=== PATIENT | male | born 1950 | race Caucasian/White ===

== ENCOUNTER 2021-08-28 08:15 | Observation (INO) ==
[2021-08-28] MEDS ORDERED: ANCEF VIAL 1 GRAM ONE (09:46)
[2021-08-28] MEDS ORDERED: NS 100 ML IV 100 ML ONE (09:46)
[2021-08-28] MEDS ORDERED: NS 1,000 ML IV 1,000 ML ONE (09:46)
[2021-08-28] MEDS ORDERED: FENTANYL VIAL INJ 100 mcg ONE ×2 (10:09→10:16)
[2021-08-28] MEDS ORDERED: NAROPIN 0.75% EPI ONE (10:10)
[2021-08-28] MEDS ORDERED: VERSED ONE (10:10)
[2021-08-28] MEDS ORDERED: DIPRIVAN VIAL 0 ML ONE (10:15)
[2021-08-28 10:33] VITALS: BP 118/71
[2021-08-28 10:48] VITALS: BMI 38.9
[2021-08-28] MEDS ORDERED: DILAUDID INJ ONE (11:35)
--- NOTE | 2021-08-28 11:35 | RAD ---
CHEST, 1 VIEWHISTORY:COVID POS. NO CHEST COMPLAINTSStudy: Single view of the chest.Comparison:NoneFindings:Cardiomegaly and pulmonary vascular congestion. No focal consolidations, pleural effusions or pneumothorax. Osseous structures demonstrate no acute abnormality.IMPRESSION:1.Cardiomegaly and pulmonary vascular congestion.Electronically signed by: HAVEN DONIS (August 28, 2021 11:33:59)
== END 2021-08-28 12:15 | disposition home or self-care (01) ==
LOC: MED/SURG → EDUNIT# 08:15
PROVIDERS: ADMIT Podiatrist; ATTEND Podiatrist
DX: Z53.8 Procedure and treatment not carried out for other reasons; R73.09 Other abnormal glucose; U07.1 COVID-19

== ENCOUNTER 2021-09-23 07:30 | Observation (INO) ==
[~2021-09-23 07:30] MED LIST: ANCEF VIAL 1 GRAM ONE; NS 1,000 ML IV 1,000 ML ONE; NS 100 ML IV 100 ML ONE
[2021-09-23] MEDS ORDERED: BYFAVO INJ IVP ONE (07:44)
[2021-09-23] MEDS ORDERED: NAROPIN 0.75% EPI ONE (07:44)
[2021-09-23 07:45] VITALS: BMI 38.9
[2021-09-23 07:45] LABS: BASOPHILS # (AUTO) 0.2 X10^3/uL (0.0-0.1); BASOPHILS % (AUTO) 2.5 % (0.2-1.0); EOSINOPHILS # (AUTO) 0.2 x10^3/uL (0.0-0.2); EOSINOPHILS % (AUTO) 2.6 % (0.9-2.9); HEMATOCRIT 34.7 % (42.0-54.0); HEMOGLOBIN 11.8 g/dL (13.5-18.0); LYMPHOCYTES # (AUTO) 1.8 X10^3/uL (1.3-2.9); LYMPHOCYTES % (AUTO) 29.2 % (21.0-51.0); MEAN CORPUSCULAR HEMOGLOBIN 29.2 pg (27.0-34.0); MEAN CORPUSCULAR HGB CONC 33.9 g/dL (33.0-35.0); MEAN CORPUSCULAR VOLUME 86.2 fL (80.0-100.0); MEAN PLATELET VOLUME 9.3 fL (7.4-11.0); MONOCYTES # (AUTO) 0.6 x10^3/uL (0.3-0.8); MONOCYTES % (AUTO) 8.8 % (0.0-13.0); NEUTROPHILS # (AUTO) 3.6 x10^3/uL (2.2-4.8); NEUTROPHILS % (AUTO) 56.9 % (42.0-75.0); RED BLOOD COUNT 4.02 X10^6/uL (4.7-6.0); RED CELL DISTRIBUTION WIDTH 15.1 % (11.6-16.5); WHITE BLOOD COUNT 6.3 X10^3/uL (3.6-10.0)
[2021-09-23 07:57] LABS: ALANINE AMINOTRANSFERASE 33 Units/L (12-78); ALBUMIN 3.5 g/dL (3.4-5.0); ALKALINE PHOSPHATASE 95 Units/L (46-116); ASPARTATE AMINO TRANSFERASE 18 Units/L (15-37); BLOOD UREA NITROGEN 16 mg/dL (7-18); CARBON DIOXIDE 28.6 mmol/L (21-32); CHLORIDE 101 mmol/L (98-107); COR NA(FOR HYPERGLY) 140 mmol/L (136-145); CREATININE 1.07 mg/dL (0.70-1.30); SODIUM 138 mmol/L (136-145); TOTAL PROTEIN 6.8 g/dL (6.4-8.2); eGFR NON BLACK RACES > 60 (>60)
[2021-09-23] MEDS ORDERED: FENTANYL VIAL INJ 100 mcg ONE (08:42)
[2021-09-23] MEDS ORDERED: DIPRIVAN VIAL 20 ML ONE (08:43)
[2021-09-23] MEDS ORDERED: MARCAINE 0.25% INJ ONE (09:09)
[2021-09-23] MEDS ORDERED: SUPRANE ONE ×2 (09:48→11:39)
[2021-09-23] MEDS ORDERED: EPHEDRINE SULFATE INJ ONE (10:38)
[2021-09-23] MEDS ORDERED: NS 1,000 ML IV 1,000 ML ONE (11:15)
[2021-09-23] MEDS ORDERED: BENADRYL INJ 50 MG VIAL IVP PRN (12:22)
[2021-09-23] MEDS ORDERED: PHENERGAN INJ 25 MG IM PRN (12:22)
[2021-09-23] MEDS ORDERED: DILAUDID INJ IVP PRN (12:22)
[2021-09-23] MEDS ORDERED: ZOFRAN INJ 4 MG VIAL IVP PRN ×2 (12:22→12:59)
[2021-09-23] MEDS ORDERED: BARHEMSYS INJ IVP PRN (12:22)
[2021-09-23] MEDS ORDERED: REGLAN INJ 10 MG VIAL IVP PRN (12:22)
[2021-09-23] MEDS ORDERED: HYDROGEN PEROXIDE 3% ONE (12:35)
[2021-09-23] MEDS ORDERED: TYLENOL 325 MG TAB PO PRN (12:59)
[2021-09-23] MEDS ORDERED: DILAUDID INJ ONE (13:18)
[2021-09-23] MEDS: PROVENTIL NEB TX 0.083% 2.5MG/ 3ML NEB SCH ×2 (13:49→17:00)
[2021-09-23] MEDS ORDERED: ASTELIN NASAL SPRAY ENOSTRIL ONE (16:01)
[2021-09-23] MEDS: DILAUDID INJ IVP PRN ×2 (16:03→20:43)
[2021-09-23] MEDS: ASTELIN NASAL SPRAY ENOSTRIL SCH ×2 (16:03→20:40)
[2021-09-23] MEDS: PriLOSEC PO SCH ×2 (16:04→20:40)
[2021-09-23] MEDS: BETAPACE AF PO SCH ×2 (16:04→20:40)
[2021-09-23] MEDS: COREG TAB 25 MG PO SCH ×2 (16:04→20:40)
[2021-09-23] MEDS: GLUCOPHAGE PO SCH (16:05)
[2021-09-23] MEDS: NEURONTIN TAB 600 MG PO SCH ×2 (16:05→21:00)
[2021-09-23] MEDS: ZyrTEC TAB 10 MG PO SCH (16:05)
[2021-09-23] MEDS: SINGULAIR TAB 10 MG PO SCH (16:05)
[2021-09-23] MEDS: RANEXA PO SCH ×2 (16:05→20:41)
[2021-09-23] MEDS: PERCOCET TAB 5/325 MG PO PRN ×2 (16:06→21:53)
[2021-09-23] MEDS: ALOGLIPTIN 25 MG PO SCH (16:06)
[2021-09-23] MEDS ORDERED: STERILE WATER IRRIGATION IR ONE (19:06)
[2021-09-23] MEDS: LIPITOR TAB 80 MG PO SCH (20:40)
[2021-09-23] MEDS: COLACE CAP 100 MG PO SCH (20:40)
[2021-09-23] MEDS: PATIENT'S HOME MEDICATION PO SCH (20:41)
[2021-09-23] MEDS: ZYLOPRIM PO SCH (20:41)
[2021-09-23] MEDS ORDERED: ROBAXIN PO SCH (21:00)
[2021-09-23] MEDS ORDERED: CATAPRES TAB 0.1 MG PO ONE (23:41)
[2021-09-23] MEDS ORDERED: CATAPRES TAB 0.1 MG ONE (23:58)
[2021-09-24] MEDS: PROVENTIL NEB TX 0.083% 2.5MG/ 3ML NEB SCH ×4 (00:05→17:00)
[2021-09-24 04:30] LABS: BLOOD UREA NITROGEN 17 mg/dL (7-18); CALCIUM 8.3 mg/dL (8.5-10.1); CARBON DIOXIDE 32.5 mmol/L (21-32); CHLORIDE 103 mmol/L (98-107); COR NA(FOR HYPERGLY) 140 mmol/L (136-145); CREATININE 1.12 mg/dL (0.70-1.30); SODIUM 138 mmol/L (136-145); eGFR NON BLACK RACES > 60 (>60)
[2021-09-24] MEDS: NEURONTIN TAB 600 MG PO SCH ×3 (05:33→21:06)
[2021-09-24] MEDS: ASTELIN NASAL SPRAY ENOSTRIL SCH ×2 (08:31→20:48)
[2021-09-24] MEDS: BETAPACE AF PO SCH ×2 (08:31→20:48)
[2021-09-24] MEDS: ALOGLIPTIN 25 MG PO SCH (08:31)
[2021-09-24] MEDS: PriLOSEC PO SCH ×2 (08:32→20:49)
[2021-09-24] MEDS: GLUCOPHAGE PO SCH (08:32)
[2021-09-24] MEDS: RANEXA PO SCH ×2 (08:32→20:49)
[2021-09-24] MEDS: SINGULAIR TAB 10 MG PO SCH (08:32)
[2021-09-24] MEDS: COREG TAB 25 MG PO SCH ×2 (08:32→20:48)
[2021-09-24] MEDS: IMDUR PO SCH (08:32)
[2021-09-24] MEDS: ZyrTEC TAB 10 MG PO SCH (08:33)
[2021-09-24] MEDS: PERCOCET TAB 5/325 MG PO PRN ×3 (08:58→19:00)
[2021-09-24] MEDS: XARELTO PO SCH (12:50)
[2021-09-24] MEDS: DILAUDID INJ IVP PRN (12:50)
--- NOTE | 2021-09-24 13:08 | PCM.PROG ---
Progress Note Progress Note for Day of Date of Exam: 09/24/21 Subjective Subjective: Mr. Schreiber is a 71 year old male who is s/p left total ankle replacement, DOS was 09/23. He was seen at bedside resting. He does relate some pain to the left ankle and rates this it 12/19. He has not been elevating over 2 pillows. He denies any f/c/n/v/sob/calf pain. Past Medical Family Social History Past Med/Fam/Surg Hx: No changes since H&P Allergies: Allergies No Known Drug Allergies Allergy (Verified 08/28/21 10:32) Review of Systems ROS: No change since H&P Vital Signs and I&O's Vital Signs: Temperature 98.2 F Pulse Rate [Left Radial] 82 Pulse Rate 96 Respiratory Rate 18 Blood Pressure [Left Arm] 128/60 Blood Pressure 123/66 O2 Sat by Pulse Oximetry 93 Intake and Output: Intake & Output 09/21/21 09/22/21 09/23/21 09/24/21 23:59 23:59 23:59 23:59 Intake Total 2490 / 2490 610 / 610 Output Total 1000 / 1000 600 / 600 Balance 1490 / 1490 10 10 Physical Exam Musculoskeletal: Left (Left LE with the dressing and posterior splint clean, dry and intact. No strike through. No calf pain. He is able to move his digits x5. He has sensation x5. Cap fill less than 3 sec x5 on the left. ) Mood Description: Calm Speech Pattern: Clear and Appropriate Laboratory and Diagnostics Result Diagrams: 09/23/21 07:33 09/24/21 03:35 Labs: Laboratory WBC 6.3 X10^3/uL (3.6-10.0) 09/23/21 07:33 RBC 4.02 X10^6/uL (4.7-6.0) L 09/23/21 07:33 Hgb 11.8 g/dL (13.5-18.0) L 09/23/21 07:33 Hct 34.7 % (42.0-54.0) L 09/23/21 07:33 MCV 86.2 fL (80.0-100.0) 09/23/21 07:33 MCH 29.2 pg (27.0-34.0) 09/23/21 07:33 MCHC 33.9 g/dL (33.0-35.0) 09/23/21 07:33 RDW 15.1 % (11.6-16.5) 09/23/21 07:33 Plt Count 177 X10^3/uL (150.0-450.0) 09/23/21 07:33 MPV 9.3 fL (7.4-11.0) 09/23/21 07:33 Neut % (Auto) 56.9 % (42.0-75.0) 09/23/21 07:33 Lymph % (Auto) 29.2 % (21.0-51.0) 09/23/21 07:33 Saunders % (Auto) 8.8 % (0.0-13.0) 09/23/21 07:33 Eos % (Auto) 2.6 % (0.9-2.9) 09/23/21 07:33 Baso % (Auto) 2.5 % (0.2-1.0) H 09/23/21 07:33 Neut # (Auto) 3.6 x10^3/uL (2.2-4.8) 09/23/21 07:33 Lymph # (Auto) 1.8 X10^3/uL (1.3-2.9) 09/23/21 07:33 Saunders # (Auto) 0.6 x10^3/uL (0.3-0.8) 09/23/21 07:33 Eos # (Auto) 0.2 x10^3/uL (0.0-0.2) 09/23/21 07:33 Baso # (Auto) 0.2 X10^3/uL (0.0-0.1) H 09/23/21 07:33 Absolute Nucleated RBC 0.0 /100WBC 09/23/21 07:33 Sodium 138 mmol/L (136-145) 09/24/21 03:35 Corrected Sodium 140 mmol/L (136-145) 09/24/21 03:35 Potassium 4.1 mmol/L (3.5-5.1) 09/24/21 03:35 Chloride 103 mmol/L (98-107) 09/24/21 03:35 Carbon Dioxide 32.5 mmol/L (21-32) H 09/24/21 03:35 BUN 17 mg/dL (7-18) 09/24/21 03:35 Creatinine 1.12 mg/dL (0.70-1.30) 09/24/21 03:35 Est GFR (MDRD) Af Amer > 60 (>60) 09/24/21 03:35 Est GFR (MDRD) Non-Af > 60 (>60) 09/24/21 03:35 Glucose 184 mg/dL (65-99) H 09/24/21 03:35 POC Glucose (mg/dL) 220 mg/dL (65-99) H 09/24/21 10:31 Calcium 8.3 mg/dL (8.5-10.1) L 09/24/21 03:35 Corrected Calcium TNP 09/23/21 07:33 Total Bilirubin 0.40 mg/dL (0.2-1.0) 09/23/21 07:33 AST 18 Units/L (15-37) 09/23/21 07:33 ALT 33 Units/L (12-78) 09/23/21 07:33 Alkaline Phosphatase 95 Units/L (46-116) 09/23/21 07:33 Total Protein 6.8 g/dL (6.4-8.2) 09/23/21 07:33 Albumin 3.5 g/dL (3.4-5.0) 09/23/21 07:33 Globulin 3.3 g/dL (2.5-4.5) 09/23/21 07:33 Albumin/Globulin Ratio 1.1 Ratio (1.1-2.1) 09/23/21 07:33 SARS-CoV-2 (PCR) Negative (NEGATIVE) 09/23/21 07:15 Plan (1) Arthritis of left ankle: Status: Acute Plan: 71 yo male who is s/p left total ankle replacement, DOS 09/23. He is with VSS and NAD. He still has some pain which may be due to not elevating. Reviewed PT consult and they recommend Rehab. Plan: Keep dressing intact. No dressing change until his follow up with Dr. Sorenson in clinic [facility] on the left LE. He is to continue to elevate x2 pillows. PT consult, appreciate recs. Patient would benefit from Rehab facility Rx's in the chart Patient is to restart Xarelto Will monitor Please do not hesitate to contact me with questions or concerns. Matthew Rivas DPM Fellow [phone]
[2021-09-24] MEDS: COLACE CAP 100 MG PO SCH (20:48)
[2021-09-24] MEDS: LIPITOR TAB 80 MG PO SCH (20:48)
[2021-09-24] MEDS: PATIENT'S HOME MEDICATION PO SCH (20:48)
[2021-09-24] MEDS: ZYLOPRIM PO SCH (20:49)
[2021-09-25] MEDS: PROVENTIL NEB TX 0.083% 2.5MG/ 3ML NEB SCH ×3 (00:10→14:43)
[2021-09-25 05:16] LABS: BASOPHILS % (AUTO) 0.3 % (0.2-1.0); EOSINOPHILS # (AUTO) 0.1 x10^3/uL (0.0-0.2); EOSINOPHILS % (AUTO) 1.3 % (0.9-2.9); HEMATOCRIT 29.4 % (42.0-54.0); HEMOGLOBIN 10.1 g/dL (13.5-18.0); LYMPHOCYTES # (AUTO) 1.7 X10^3/uL (1.3-2.9); LYMPHOCYTES % (AUTO) 27.7 % (21.0-51.0); MEAN CORPUSCULAR HEMOGLOBIN 29.4 pg (27.0-34.0); MEAN CORPUSCULAR HGB CONC 34.3 g/dL (33.0-35.0); MEAN CORPUSCULAR VOLUME 85.8 fL (80.0-100.0); MEAN PLATELET VOLUME 9.8 fL (7.4-11.0); MONOCYTES # (AUTO) 0.8 x10^3/uL (0.3-0.8); MONOCYTES % (AUTO) 13.4 % (0.0-13.0); NEUTROPHILS # (AUTO) 3.5 x10^3/uL (2.2-4.8); NEUTROPHILS % (AUTO) 57.3 % (42.0-75.0); RED BLOOD COUNT 3.43 X10^6/uL (4.7-6.0); RED CELL DISTRIBUTION WIDTH 15.1 % (11.6-16.5); WHITE BLOOD COUNT 6.2 X10^3/uL (3.6-10.0)
[2021-09-25 05:32] LABS: ALANINE AMINOTRANSFERASE 20 Units/L (12-78); ALBUMIN 2.7 g/dL (3.4-5.0); ALKALINE PHOSPHATASE 71 Units/L (46-116); ASPARTATE AMINO TRANSFERASE 14 Units/L (15-37); BLOOD UREA NITROGEN 17 mg/dL (7-18); CALCIUM 8.2 mg/dL (8.5-10.1); CARBON DIOXIDE 30.4 mmol/L (21-32); CHLORIDE 102 mmol/L (98-107); COR CA(FOR HYPOALB) 9.2 mg/dL (8.5-10.1); COR NA(FOR HYPERGLY) 138 mmol/L (136-145); CREATININE 1.18 mg/dL (0.70-1.30); SODIUM 137 mmol/L (136-145); eGFR NON BLACK RACES > 60 (>60)
[2021-09-25] MEDS: NEURONTIN TAB 600 MG PO SCH (05:51)
[2021-09-25] MEDS: COREG TAB 25 MG PO SCH (08:28)
[2021-09-25] MEDS: ALOGLIPTIN 25 MG PO SCH (08:28)
[2021-09-25] MEDS: ASTELIN NASAL SPRAY ENOSTRIL SCH (08:28)
[2021-09-25] MEDS: BETAPACE AF PO SCH (08:28)
[2021-09-25] MEDS: GLUCOPHAGE PO SCH (08:29)
[2021-09-25] MEDS: IMDUR PO SCH (08:29)
[2021-09-25] MEDS: RANEXA PO SCH (08:29)
[2021-09-25] MEDS: SINGULAIR TAB 10 MG PO SCH (08:29)
[2021-09-25] MEDS: PriLOSEC PO SCH (08:29)
[2021-09-25] MEDS: XARELTO PO SCH (08:30)
[2021-09-25] MEDS: ZyrTEC TAB 10 MG PO SCH (08:30)
[2021-09-25 11:36] VITALS: BP 154/72
== END 2021-09-25 13:00 | disposition home health service (06) ==
LOC: MED/SURG
PROVIDERS: ADMIT Obstetrics & Gynecology Obstetrics; ATTEND Obstetrics & Gynecology Obstetrics
DX: R73.09 Other abnormal glucose; Z20.822 Contact with and (suspected) exposure to COVID-19; M25.572 Pain in left ankle and joints of left foot; G89.18 Other acute postprocedural pain; R26.89 Other abnormalities of gait and mobility; M12.572 Traumatic arthropathy, left ankle and foot; M24.575 Contracture, left foot